=== PATIENT | male | born 2000 | race Caucasian/White ===

== ENCOUNTER 2025-01-06 11:05 | Emergency (ER) | payer OTHER, SELFPAY ==
[2025-01-06 11:52] LABS: #Basophils 0.1 thou/uL (0.0-0.2); #Eosinophils 2.0 thou/uL (0.0-0.7); #Lymphocytes 2.4 thou/uL (1.20-3.40); #Monocytes 0.6 thou/uL (0.11-0.59); #Neutrophils 10.0 thou/uL (1.40-6.50); %Basophils 0.7 % (0.0-1.0); %Eosinophils 13.1 % (0.0-10.0); %Lymphocytes 16.1 % (21.0-51.0); %Monocytes 4.0 % (0.0-10.0); %Neutrophils 66.2 % (42.0-75.0); Hematocrit 47.9 % (42.0-52.0); Hemoglobin 15.0 g/dL (14.0-18.0); Mean Corpuscular Hemoglobin 28.4 pg (27.0-31.0); Mean Corpuscular Volume 90.9 fl (78.0-98.0); Platelet Count 195 10x3/uL (130-400); Red Blood Cell (RBC) Count 5.28 mill/uL (4.70-6.10); White Blood Cell (WBC) Count 15.1 10x3/uL (4.8-10.8)
[2025-01-06] MEDS ORDERED: Dicyclomine 10 MG CAP ONE (11:54)
[2025-01-06 12:11] LABS: ALT (SGPT) 29 U/L (Less than 45); AST (SGOT) 21 U/L (11-34); Albumin 4.5 g/dL (3.1-4.5); Alkaline Phosphatase 65 U/L (40-110); Anion Gap 14 mmol/L (10-20); BUN (Urea Nitrogen) 11 mg/dL (8.9-20.6); Bilirubin, Total 0.8 mg/dL (0.3-1.2); Calc. Creatinine Clearance 0 mL/min (70-130); Calcium 9.3 mg/dL (7.8-10.44); Carbon Dioxide 26 mmol/L (22-29); Chloride 105 mmol/L (98-107); Globulin 2.8 g/dL (2.4-3.5); Glucose 109 mg/dL (70-105); Potassium 3.6 mmol/L (3.5-5.1); Sodium 141 mmol/L (136-145)
== END 2025-01-06 12:44 | disposition home or self-care (01) ==
LOC: MADERS 11:05
DX: K59.00 Constipation, unspecified (principal); F17.290 Nicotine dependence, other tobacco product, uncomplicated
CPT/HCPCS: 36415; 74022; 80053; 85025; 99283; Q0162

== ENCOUNTER 2025-03-09 14:23 | Emergency (ER) | payer BC, SELFPAY | END 2025-03-09 15:15 | disposition home or self-care (01) | LOC: MADERS 14:23 | DX: U07.1 COVID-19 (principal); E66.9 Obesity, unspecified; F17.290 Nicotine dependence, other tobacco product, uncomplicated; F17.210 Nicotine dependence, cigarettes, uncomplicated | CPT/HCPCS: 87426; 99283 ==